=== PATIENT | male | born 1980 ===

== ENCOUNTER 2016-08-11 22:33 | Emergency (ER) | payer MEDICAID ==
--- NOTE | 2016-08-11 22:41 | EDPHY ---
H & P HPI/ROS: HPI The patient presents with [ ]. REVIEW OF SYSTEMS Constitutional: No fever, no chills. Eyes: No discharge. ENT: No sore throat. Cardiovascular: No chest pain, no palpitations. Respiratory: No cough, no shortness of breath. Gastrointestinal: No abdominal pain, no vomiting. Genitourinary: No hematuria. Musculoskeletal: No back pain. Skin: No rashes. Neurological: No headache. PMHx: Soc Hx: FHx: PHYSICAL General Appearance: [Alert, no distress] Eyes: [Pupils equal and round no pallor or injection] ENT, Mouth: [Mucous membranes moist] Respiratory: [There are no retractions, lungs are clear to auscultation] Cardiovascular: [ Regular rate and rhythm ] Gastrointestinal: [ Abdomen is soft and non-tender, no masses, bowel sounds normal ] Neurological: [ A&O, moves all extremities] Skin: [ Warm and dry, no rashes] Musculoskeletal: [Neck is supple non tender ] Extremities: [symmetrical, full range of motion ] Psychiatric: [ Patient is oriented X 3, there is no agitation ] Source: Patient, EMS Exam Limitations: No limitations Medical Decision Making - Diagnostics Imaging Results: Imaging Impressions Chest X-Ray 08/11/16 22:40 Impression: Chest negative for acute cardiopulmonary abnormality. - Data Points Laboratory Results: Laboratory Results 08/11/16 22:30 08/11/16 22:30 08/11/16 08/11/16 08/11/16 22:30 22:30 22:30 WBC 6.85 10^3/uL 10^3/uL (3.80-9.50) RBC 4.78 10^6/uL 10^6/uL (4.40-6.38) Hgb 14.4 g/dL g/dL (13.7-17.5) Hct 42.6 % % (40.0-51.0) MCV 89.1 fL fL (81.5-99.8) MCH 30.1 pg pg (27.9-34.1) MCHC 33.8 g/dL g/dL (32.4-36.7) RDW 13.2 % % (11.5-15.2) Plt Count 359 10^3/uL 10^3/uL (150-400) MPV 9.1 fL fL (8.7-11.7) Neut % (Auto) 54.8 % % (39.3-74.2) Lymph % (Auto) 29.9 % % (15.0-45.0) [place] % (Auto) 13.1 % H % (4.5-13.0) Eos % (Auto) 1.5 % % (0.6-7.6) Baso % (Auto) 0.6 % % (0.3-1.7) Nucleat RBC Rel Count 0.0 % % (0.0-0.2) Absolute Neuts (auto) 3.75 10^3/uL 10^3/uL (1.70-6.50) Absolute Lymphs (auto) 2.05 10^3/uL 10^3/uL (1.00-3.00) Absolute Monos (auto) 0.90 10^3/uL H 10^3/uL (0.30-0.80) Absolute Eos (auto) 0.10 10^3/uL 10^3/uL (0.03-0.40) Absolute Basos (auto) 0.04 10^3/uL 10^3/uL (0.02-0.10) Absolute Nucleated RBC 0.00 10^3/uL 10^3/uL (0-0.01) Immature Gran % 0.1 % % (0.0-1.1) Immature Gran # 0.01 10^3/uL 10^3/uL (0.00-0.10) D-Dimer < 0.27 ug/mLFEU ug/mLFEU (0.00-0.50) Sodium 140 mEq/L mEq/L (134-144) Potassium 4.1 mEq/L mEq/L (3.5-5.2) Chloride 104 mEq/L mEq/L (97-110) Carbon Dioxide 24 mEq/l mEq/l (22-31) Anion Gap 12 mEq/L mEq/L (8-16) BUN 10 mg/dL mg/dL (7-23) Creatinine 0.9 mg/dL mg/dL (0.7-1.3) Estimated GFR > 60 Glucose 95 mg/dL mg/dL (70-100) Calcium 9.5 mg/dL mg/dL (8.5-10.4) Troponin I Pending Departure - Departure Disposition: Home, Routine, Self-Care Clinical Impression: Blister of foot, Chest pressure Condition: Good Instructions: Blister (ED) Additional Instructions: Please keep your blister clean, you can use antibiotic ointment on it. Referrals: [facility] [Outside] - As per Instructions [facility] [Outside] - As per Instructions
[2016-08-11 22:46] LABS: % IMMATURE GRANULYOCYTES 0.1 % (0.0-1.1); ABSOLUTE IMMATURE GRANULOCYTES 0.01 10^3/uL (0.00-0.10); ADD DIFF? NO; ADD MORPH? NO; ADD SCAN? NO; ATYPICAL LYMPHOCYTE FLAG 50 (0-99); FRAGMENT RBC FLAG 0 (0-99); HEMATOCRIT 42.6 % (40.0-51.0); HEMOGLOBIN 14.4 g/dL (13.7-17.5); LEFT SHIFT FLG 0 (0-99); LIPEMIA HEMOLYSIS FLAG 90 (0-99); MEAN CELL HEMOGLOBIN 30.1 pg (27.9-34.1); MEAN CELL HEMOGLOBIN CONCENTR. 33.8 g/dL (32.4-36.7); MEAN CELL VOLUME 89.1 fL (81.5-99.8); MEAN PLATELET VOLUME 9.1 fL (8.7-11.7); PLATELET CLUMPS FLAG 0 (0-99); PLATELET COUNT 359 10^3/uL (150-400); RED BLOOD CELL COUNT 4.78 10^6/uL (4.40-6.38); RED CELL DISTRIBUTION WIDTH 13.2 % (11.5-15.2)
[2016-08-11 22:56] LABS: ANION GAP 12 mEq/L (8-16); CALCIUM 9.5 mg/dL (8.5-10.4); CARBON DIOXIDE 24 mEq/l (22-31); CHLORIDE 104 mEq/L (97-110); CREATININE 0.9 mg/dL (0.7-1.3); GLOMERULAR FILTRATION RATE > 60; GLUCOSE 95 mg/dL (70-100); POTASSIUM 4.1 mEq/L (3.5-5.2); SODIUM 140 mEq/L (134-144)
[2016-08-11 23:08] LABS: TROPONIN I < 0.012 ng/mL (0-0.034)
--- NOTE | 2016-08-11 23:14 | EDPHY ---
H & P HPI/ROS: HPI The patient presents with chest pain and for the last several days which is intermittent. It is described as a pressure throughout his chest which comes and goes, it is not alleviated or exacerbated by anything. It is moderate in severity. He has had it before. He was given an aspirin for the pain and now he does not have any symptoms. It is not associated with any shortness of breath, nausea or vomiting. He is complaining of a blister on his foot as well as jock itch. He flew here from [facility] about 4 days ago and missed his flight back home. He is here to sign divorce papers. He has been extensively walking and says that he walked here from [place]. He does not have a way to get back to [place] right now. REVIEW OF SYSTEMS Constitutional: No fever, no chills. Eyes: No discharge. ENT: No sore throat. Cardiovascular: + chest pain, no palpitations. Respiratory: No cough, no shortness of breath. Gastrointestinal: No abdominal pain, no vomiting. Genitourinary: No hematuria. Musculoskeletal: No back pain. Skin: No rashes. Neurological: No headache. PMHx: Healthy Soc Hx: From [place], here to sign IPDIA papers FHx: father with CAD PHYSICAL General Appearance: Alert, no distress Eyes: Pupils equal and round no pallor or injection ENT, Mouth: Mucous membranes moist Respiratory: There are no retractions, lungs are clear to auscultation Cardiovascular: Regular rate and rhythm Gastrointestinal: Abdomen is soft and non-tender, no masses, bowel sounds normal Neurological: A&O, moves all extremities Skin: Warm and dry, no rashes Musculoskeletal: Neck is supple non tender Extremities: symmetrical, full range of motion, right foot with 2 x 6 cm blister on the plantar surface with no surrounding erythema or edema Psychiatric: Patient is oriented X 3, there is no agitation Source: Patient, EMS Exam Limitations: No limitations Medical Decision Making - Diagnostics Imaging Results: Imaging Impressions Chest X-Ray 08/11/16 22:40 Impression: Chest negative for acute cardiopulmonary abnormality. Differential Diagnosis: This is a 36-year-old male, brought in by ambulance for chest pressure. Differential diagnosis includes ACS, PE, musculoskeletal pain. His symptoms have now completely resolved. He is complaining mostly of a blister on his foot from extensive walking. I have reviewed old records from earlier today when he was seen at [facility]. He was diagnosed with tinea cruris and a blister. He left before receiving his prescriptions. In the emergency room, basic labs were performed including a troponin and D- dimer. These were unremarkable. Chest x-ray was also normal. EKG was not performed because the patient left before it could be done. I brought in a male nurse to accompany me for the exam as he was explaining that he was having some itching of his genital region. He then said that he wanted to leave from the emergency room. He said that we would not be able to help him and he wants to start hitchhiking before it gets too late. He is interested in taking a shower, I have offered him information on the homeless fpc, however he says he does not want to go to a fpc. He was complaining about dirty socks, so we offered him clean socks, however he ripped out his IV in front of us and said he wanted to leave the emergency room. I feel he is a competent decision maker and is not voicing any suicidality or homicidality. I had planned on giving him resources for [facility] as he said he wanted to start on a mood stabilizer. - Data Points Laboratory Results: Laboratory Results 08/11/16 22:30 08/11/16 22:30 08/11/16 08/11/16 08/11/16 22:30 22:30 22:30 WBC 6.85 10^3/uL 10^3/uL (3.80-9.50) RBC 4.78 10^6/uL 10^6/uL (4.40-6.38) Hgb 14.4 g/dL g/dL (13.7-17.5) Hct 42.6 % % (40.0-51.0) MCV 89.1 fL fL (81.5-99.8) MCH 30.1 pg pg (27.9-34.1) MCHC 33.8 g/dL g/dL (32.4-36.7) RDW 13.2 % % (11.5-15.2) Plt Count 359 10^3/uL 10^3/uL (150-400) MPV 9.1 fL fL (8.7-11.7) Neut % (Auto) 54.8 % % (39.3-74.2) Lymph % (Auto) 29.9 % % (15.0-45.0) [place] % (Auto) 13.1 % H % (4.5-13.0) Eos % (Auto) 1.5 % % (0.6-7.6) Baso % (Auto) 0.6 % % (0.3-1.7) Nucleat RBC Rel Count 0.0 % % (0.0-0.2) Absolute Neuts (auto) 3.75 10^3/uL 10^3/uL (1.70-6.50) Absolute Lymphs (auto) 2.05 10^3/uL 10^3/uL (1.00-3.00) Absolute Monos (auto) 0.90 10^3/uL H 10^3/uL (0.30-0.80) Absolute Eos (auto) 0.10 10^3/uL 10^3/uL (0.03-0.40) Absolute Basos (auto) 0.04 10^3/uL 10^3/uL (0.02-0.10) Absolute Nucleated RBC 0.00 10^3/uL 10^3/uL (0-0.01) Immature Gran % 0.1 % % (0.0-1.1) Immature Gran # 0.01 10^3/uL 10^3/uL (0.00-0.10) D-Dimer < 0.27 ug/mLFEU ug/mLFEU (0.00-0.50) Sodium 140 mEq/L mEq/L (134-144) Potassium 4.1 mEq/L mEq/L (3.5-5.2) Chloride 104 mEq/L mEq/L (97-110) Carbon Dioxide 24 mEq/l mEq/l (22-31) Anion Gap 12 mEq/L mEq/L (8-16) BUN 10 mg/dL mg/dL (7-23) Creatinine 0.9 mg/dL mg/dL (0.7-1.3) Estimated GFR > 60 Glucose 95 mg/dL mg/dL (70-100) Calcium 9.5 mg/dL mg/dL (8.5-10.4) Troponin I < 0.012 ng/mL ng/mL (0-0.034) Departure - Departure Disposition: Home, Routine, Self-Care Clinical Impression: Blister of foot, Chest pressure Condition: Good Instructions: Blister (ED) Additional Instructions: Please keep your blister clean, you can use antibiotic ointment on it. Referrals: [facility] [Outside] - As per Instructions [facility] [Outside] - As per Instructions
[2016-08-11 23:17] VITALS: BP 129/83; PULSE 82; RESP 18; TEMP 97.3; O2SAT 95
== END 2016-08-11 23:11 | disposition home or self-care (01) ==
DX: R07.89 Other chest pain (principal); R23.8 Other skin changes